=== PATIENT | female | born 1990 | race Two or more races ===

== ENCOUNTER 2017-01-26 14:45 | Emergency (ER) | payer MEDICAID ==
[~2017-01-26] VITALS: Ht 157.5 cm; Wt 61.0 kg
[~2017-01-26 14:45] MED LIST: HYDR-3498 PO; IBUP-1542 PO; PREN1TAB62 PO
[2017-01-26 14:47] VITALS: Ht 157.5 cm; Wt 61.0 kg
[2017-01-26] MEDS ORDERED: HYDROCODONE/APAP (5/325) TAB PO ONE (16:00)
--- NOTE | 2017-01-26 16:15 | ERD ---
ER Documentation Chief Complaint Chief Complaint complains of right breast pain x days HPI 26 year old female comes in with right breast pain for 2-3 days. It is at the 12 :00 position on the right breast which she is breast feeding from. She feels something hard and swollen in this region. Denies fever or chills. ROS All systems reviewed and are negative except as per history of present illness. Medications Home Meds Active Scripts Hydrocodone/Acetaminophen ([place] 5-325 Tablet) 1 Each Tablet, 1 TAB PO Q6H Y for PAIN, #7 TAB Prov:CYN VILLEGAS PA-C 01/26/17 Ibuprofen* (Motrin*) 800 Mg Tab, 800 MG PO Q6, #30 TAB Prov:CYN VILLEGAS PA-C 01/26/17 Sulfamethoxazole/Trimethoprim* (Bactrim Ds* Tablet) 1 Each Tablet, 1 TAB PO BID , #14 TAB Prov:CYN VILLEGAS PA-C 01/26/17 Cephalexin* (Keflex*) 500 Mg Capsule, 500 MG PO QID for 7 Days, CAP Prov:CYN VILLEGAS PA-C 01/26/17 Ibuprofen* (Motrin*) 600 Mg Tab, 600 MG PO Q6, #30 TAB Prov:CYN VILLEGAS PA-C 03/11/16 Ibuprofen* (Motrin*) 600 Mg Tab, 600 MG PO Q6H Y for PAIN LEVEL 1-5, #30 Prov:DALTON SMITH 10/16/14 Hydrocodone Bit-Acetaminophen* ([place]*) 5-325 Mg Tab, 1 TAB PO Q6 Y for PAIN, # 15 TAB Prov:DALTON SMITH 10/16/14 Reported Medications Vit-Iron Fumarate-FA ( Vitamin Tablet) 1 Each Tablet, 1 TAB PO DAILY, TAB 02/01/16 Allergies Allergies: Coded Allergies: No Known Drug Allergies (Verified Allergy, Unknown, 02/01/16) PMhx/Soc History of Surgery: Yes (tubal ligation) Hx Alcohol Use: No Hx Substance Use: No Hx Tobacco Use: No Smoking Status: Never smoker Physical Exam Vitals Vital Signs Date Time Temp Pulse Resp B/P Pulse Ox O2 Delivery O2 Flow Rate FiO2 01/26/17 14:47 98.6 117 20 116/60 98 Physical Exam General: Well-developed, well-nourished. The patient appears in no acute distress. HEENT: Head is normocephalic, atraumatic. No scleral icterus. Neck: Supple. Nontender. Lungs: Clear to auscultation. Normal air movement. Chest: The right breast at the 12 o'clock position is an indurated area, with erythema and warmth. Nipples are normal, there is no discharge. Heart: Regular rate and rhythm. S1 and S2 are normal. No murmurs, gallops, or rubs. Abdomen: Soft, nontender, nondistended. Bowel sounds are normoactive. Extremities: No clubbing or cyanosis. Normal pulses. Moving extremities x 4. No weakness. Neurologic: Alert and oriented 3. No focal deficits. Skin: Normal turgor. No rash or lesions. Results 24 hrs Current Medications Medications (Trade) Dose Ordered Sig/[place] Route PRN Reason Start Time Stop Time Status Last Admin Dose Admin Acetaminophen/ Hydrocodone Bitart ([place] (5/325)) 1 tab ONCE ONCE PO 01/26/17 16:00 01/26/17 16:01 DC 01/26/17 16:14 DIAGNOSTIC IMAGING REPORT Patient: JANNIE RAMÍREZ : 1990 Age: 26 Sex: F MR #: [id number] DOS: 01/26/17 1544 Ordering MD: CYN VILLEGAS PA-C Location: [facility] Room/Bed: PROCEDURE: Right breast ultrasound, complete. CLINICAL INDICATION: 26-year-old female with right upper hemisphere breast swelling. Rule out abscess. TECHNIQUE: Whole breast ultrasound is performed. COMPARISON: None FINDINGS: Ultrasound of the breast shows no evidence of mass, cyst, fluid collection or other sonographic abnormality. There is no evidence of axillary adenopathy. IMPRESSION: No sonographic evidence of abscess, fluid collection or malignancy. BIRADS 1 (Negative). Recommend clinical management. RPTAT: KK .Sachin Larry MD, Date Time Electronically viewed and signed by .Sachin Larry MD, MD on 01/26/2017 16:40 .L/ CC: CYN VILLEGAS PA-C Procedures/MDM 26-year-old female is currently breast-feeding from the right breast only presents with acute onset of right-sided breast pain that is above the nipple, it is around the 12 o'clock position with swelling and tenderness and warmth. It is most consistent with mastitis. There is no underlying abscess seen on the breast ultrasound. She is to start antibiotics, and recheck the area in 2 days. Departure Diagnosis: Primary Impression: Mastitis, acute Condition: Good CYN VILLEGAS PA-C Jan 26, 2017 16:15
--- NOTE | 2017-01-26 16:40 | RADRPT ---
PROCEDURE: Right breast ultrasound, complete. CLINICAL INDICATION: 26-year-old female with right upper hemisphere breast swelling. Rule out absc ess. TECHNIQUE: Whole breast ultrasound is performed. COMPARISON: None FINDINGS: Ultrasound of the breast shows no evidence of mass, cyst, fluid collection or other sonographic abno rmality. There is no evidence of axillary adenopathy. IMPRESSION: No sonographic evidence of abscess, fluid collection or malignancy. BIRADS 1 (Negative). Recommend clinical management. RPTAT: KK .Sachin Larry MD, MD Date Time Electronically viewed and signed by .Sachin Larry MD, on 01/26/2017 16:40 .L/
[2017-01-26] MEDS ORDERED: CEPH-443 PO (16:45)
[2017-01-26] MEDS ORDERED: HYDR-906 PO (16:45)
[2017-01-26] MEDS ORDERED: SULF1TAB31 PO (16:45)
[2017-01-26] MEDS ORDERED: IBUP800T25 PO (16:45)
== END 2017-01-26 17:00 | disposition home or self-care (01) ==
LOC: FTE 14:45
DX: N61.0 Mastitis without abscess (principal)
CPT/HCPCS: 76642; Z7502; Z7610